=== PATIENT | male | born 1970 | race Two or more races ===

== ENCOUNTER 2018-09-16 09:25 | Emergency (ER) | payer MEDICAID ==
[~2018-09-16] VITALS: Ht 167.6 cm; Wt 80.3 kg
[2018-09-16 09:28] VITALS: BP 132/105
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
--- NOTE | 2018-09-16 09:43 | NUR ---
PROVIDED W SOAP, HOSPITAL GOWN AND TOWELS, PT SHOWERED
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
== END 2018-09-16 10:22 | disposition home or self-care (01) ==
LOC: ER 09:27
DX: R20.8 Other disturbances of skin sensation (principal); R47.81 Slurred speech; C46.9 Kaposi's sarcoma, unspecified; Z91.040 Latex allergy status